=== PATIENT | female | born 1990 | race Hispanic/Latino ===

== ENCOUNTER 2022-03-10 13:48 | Emergency (ER) | payer BC, SELFPAY ==
[2022-03-10] MEDS ORDERED: Lorazepam 2 MG/ML VIAL ONE (13:56)
[2022-03-10] MEDS ORDERED: Fentanyl 100 MCG/2 ML VIAL ONE (14:04)
[2022-03-10] MEDS ORDERED: Tetracaine 0.5% PF 4 ML BOT ONE (14:04)
[2022-03-10] MEDS ORDERED: Fluorescein Opthalmic Strip ONE ×2 (14:06→14:14)
[2022-03-10 14:13] LABS: Hemoglobin 13.9 g/dL (12.0-15.5); Mean Corpuscular HGB CONC 33.7 g/dL (32.0-36.0); Mean Corpuscular Volume 91.8 fl (81.6-98.3); Mean Platelet Volume 9.2 fl (7.4-10.4); Platelet Count 389 10x3/uL (150-450); RBC Distribution Width 13.9 % (11.5-14.5); Red Blood Cell (RBC) Count 4.49 10x6/uL (3.90-5.03); White Blood Cell (WBC) Count 11.9 10x3/uL (3.5-10.5)
[2022-03-10 14:17] LABS: INR-International Normal Ratio 0.9; Prothrombin Time 10.1 sec (9.5-12.1)
[2022-03-10 14:24] LABS: ALT (SGPT) 33 U/L (8-55); AST (SGOT) 17 U/L (5-34); Albumin 4.2 g/dL (3.5-5.0); Alkaline Phosphatase 68 U/L (40-110); Anion Gap 17 mmol/L (10-20); BUN (Urea Nitrogen) 10 mg/dL (7.0-18.7); Bilirubin, Total 0.2 mg/dL (0.2-1.2); Calc. Creatinine Clearance 0 mL/min (70-130); Calcium 9.1 mg/dL (7.8-10.44); Carbon Dioxide 22 mmol/L (22-29); Chloride 104 mmol/L (98-107); Glucose 110 mg/dL (70-105); Potassium 3.4 mmol/L (3.5-5.1); Protein, Total 7.2 g/dL (6.0-8.3); Sodium 140 mmol/L (136-145)
[2022-03-10 14:55] LABS: MDiff Complete? YES
[2022-03-10 15:00] LABS: Band 1 % (5-11); Lymphocytes 29 % (21-51); Monocytes 6 % (0-10); Neutrophil 45 % (42-75); Reactive Lymphocytes 19 % (0-10)
[2022-03-10 15:02] LABS: Platelet Morphology Comment Appears Adequate; RBC Morphology Normal
== END 2022-03-10 15:44 | disposition home or self-care (01) ==
LOC: EEVIPCON 13:48 → CSHERS 13:48
DX: T15.02XA Foreign body in cornea, left eye, initial encounter (principal); S00.412A Abrasion of left ear, initial encounter; S00.31XA Abrasion of nose, initial encounter; W34.00XA Accidental discharge from unspecified firearms or gun, initial encounter
CPT/HCPCS: 36415; 36430; 70250; 71045; 80053; 83605; 85025; 85610; 85730; 86850; 86900; 86901; 96374; 96375; J2060; J3010